=== PATIENT | male | born 1985 | race Caucasian/White ===

== ENCOUNTER → 2024-12-11 09:43 | Outpatient (REF) | payer BC, SELFPAY ==
--- NOTE | 2024-12-11 10:58 | CARDSERVDEF ---
Echocardiogram with Definity completed after protocol screening completed. Allergies verified.
Patent IV site: __Right forearm 22 G PC inserted by IV team___
IV site flushed with 0.9% NaCl pre and post administration.
Diluted bolus method utilized to enhance visualization of ventricular truong.
Total volume given: __4__ mL Definity given by [employer]hakar [employer] intern[employer]
Patient tolerated all procedures well without complications.
Heplock D/C ed at 1055, site clear, no redness, no edema. Pressure held, no bleeding, 2x2 applied and taped. Pt offers no complaints.
== END ==
LOC: RCS 09:43
PROVIDERS: ATTENDING PHYSICIAN Internal Medicine
DX: I63.50 Cerebral infarction due to unspecified occlusion or stenosis of unspecified cerebral artery (principal)
CPT/HCPCS: 93307; Q9957

== ENCOUNTER → 2025-03-14 13:00 | Outpatient (REF) | payer BC, SELFPAY | LOC: RCS 13:00 | PROVIDERS: ATTENDING PHYSICIAN Internal Medicine | DX: Z95.818 Presence of other cardiac implants and grafts (principal); I63.50 Cerebral infarction due to unspecified occlusion or stenosis of unspecified cerebral artery | CPT/HCPCS: 93005 ==

== ENCOUNTER 2025-03-21 09:36 | Day surgery (SDC) | payer BC, SELFPAY ==
[2025-03-21 10:51] VITALS: BP 132/82
[2025-03-21 12:34] VITALS: BP 122/81
[2025-03-21 12:37] VITALS: BP 114/73
--- NOTE | 2025-03-21 12:38 | ITS.CL.IMPLP ---
Brush Or Broom Cutter - Implant Loop
Implant Loop
Procedure Report:
Date of Procedure: March 21, 2025.
Procedure: Insertable Loop Recorder Explant.
Indication: Loop at the end of service.
Performing physician: Cheo Jackson MD, [facility].
Explant: [employer] SCARLET; Model: [id number] Serial Number: [id number], (implanted 12/01/2022).
Technique: A time out was performed per protocol. The patient was prepped and draped in the usual fashion. Only local anesthetic was used and it was applied to the left prepectoral subcutaneous tissue. An incision was made over the superior aspect
of the device. Dissection was carried to the capsule. The capsule was entered. The old device was explanted. The pocket appeared normal. Hemostasis was excellent. The pocket was irrigated saline. The incision was closed with 4-0 Monocryl suture.
The skin was closed with steri-strips. The estimated blood loss was less than 0.5 mL. There were no complications. No fluoroscopy was used.
Conclusion: Uncomplicated insertable loop explantation.
Recommendation: Routine incision care.
cc: Lukas Watson MD and Rebel Kellogg MD.
[2025-03-21 12:41] VITALS: BP 121/74
[2025-03-21 12:57] VITALS: BP 128/59
[2025-03-21 13:12] VITALS: BP 132/69
== END 2025-03-21 13:35 | disposition home or self-care (01) ==
LOC: CATH 09:36
PROVIDERS: ATTENDING PHYSICIAN Internal Medicine Cardiovascular Disease; FAMILY PHYSICIAN Family Medicine; OTHER PHYSICIAN Internal Medicine
DX: Z09 Encounter for follow-up examination after completed treatment for conditions other than malignant neoplasm (principal); G47.33 Obstructive sleep apnea (adult) (pediatric); I10 Essential (primary) hypertension; E78.5 Hyperlipidemia, unspecified; E66.01 Morbid (severe) obesity due to excess calories; Z68.42 Body mass index [BMI] 45.0-49.9, adult; Z87.891 Personal history of nicotine dependence; F32.A Depression, unspecified; F41.9 Anxiety disorder, unspecified; Z79.82 Long term (current) use of aspirin; Z79.899 Other long term (current) drug therapy; Z79.85 Long-term (current) use of injectable non-insulin antidiabetic drugs; Z88.1 Allergy status to other antibiotic agents; Z88.0 Allergy status to penicillin
CPT/HCPCS: 33286